=== PATIENT | male | born 1995 | race Caucasian/White ===

== ENCOUNTER 2019-09-23 18:52 | Emergency (ER) | payer MEDICAID ==
[~2019-09-23] VITALS: Ht 175.3 cm; Wt 56.4 kg
[~2019-09-23 18:52] MED LIST: FLUO20CA19 PO
[2019-09-23] MEDS ORDERED: ONDANSETRON ODT 4 MG ONE (19:06)
[2019-09-23] MEDS ORDERED: OXYcodone/APAP 5/325MG TABLET ONE ×2 (19:07→19:28)
--- NOTE | 2019-09-23 19:18 | NUR ---
PT RRESTING ON GURNEY, MONITORS APPLIED, SIDERAILS UP X2, CALL LIGHT WITHIN REACH. RIGHT HAND ELEVATED, PT MEDICATED NORY JUN, AWAITING XRAY RESULT
[2019-09-23] MEDS ORDERED: ONDANSETRON ODT 4 MG PO ONE (19:30)
[2019-09-23] MEDS ORDERED: OXYcodone/APAP 5/325MG TABLET PO ONE ×2 (19:30)
--- NOTE | 2019-09-23 20:16 | NUR ---
PT RESTING CALMLY, MONITORS IN PLACE, CALL LIGHT WITHIN REACH. AWAITING ADDITIONAL ORDER CT
[2019-09-23] MEDS ORDERED: OMNIPAQUE 350 MG/ML, 100ML BOTTLE ONE (20:30)
[2019-09-23] MEDS ORDERED: PROPOFOL 10 MG/ML, 20ML ONE (20:53)
[2019-09-23] MEDS ORDERED: PROPOFOL 10 MG/ML, 20ML IVPush ONE (21:00)
--- NOTE | 2019-09-23 21:10 | NUR ---
PT MOVED TO T2 FOR PROCEDURAL SEDATION. CONSENT SIGNED. PT ON CARDIAC, O2, NIBP, AND ETCO2 MONITORING IN PLACE. PIV IN PLACE WITH NS SET TO TKO.
--- NOTE | 2019-09-23 21:18 | NUR ---
AMBU BAG AND SUCTION AT BEDSIDE.
--- NOTE | 2019-09-23 21:35 | NUR ---
REFER TO PROCEDURAL SEDATION PACKET
--- NOTE | 2019-09-23 21:59 | NUR ---
TOTAL OF 220MG OF PROPOFOL GIVEN BY PROVIDER, WASTED 180MG OF PROPOFOL WITNESSED BY RN WO[place]
[2019-09-23 22:58] VITALS: BP 116/83
== END 2019-09-23 23:01 | disposition home or self-care (01) ==
LOC: ED 22:55
DX: S62.144A Nondisplaced fracture of body of hamate [unciform] bone, right wrist, initial encounter for closed fracture (principal); S63.266A Dislocation of metacarpophalangeal joint of right little finger, initial encounter; S63.264A Dislocation of metacarpophalangeal joint of right ring finger, initial encounter; F17.200 Nicotine dependence, unspecified, uncomplicated; X58.XXXA Exposure to other specified factors, initial encounter; Y93.89 Activity, other specified; Y92.098 Other place in other non-institutional residence as the place of occurrence of the external cause; Y99.8 Other external cause status
CPT/HCPCS: 26700; 73120; 73130; 73200; 76000; 99152; 99285; J2704; Q0162; Q9967; 26742; 99283